=== PATIENT | female | born 1940 | race Asian ===

== ENCOUNTER 2017-03-27 05:54 | Day surgery (SDC) | payer OTHER ==
[~2017-03-27] VITALS: Ht 154.9 cm; Wt 53.5 kg
[~2017-03-27 05:54] MED LIST: LASIX40 MG PO; NABI650T PO; RENVELA800 MG PO; TENORMIN25 MG PO
[2017-03-27 06:20] LABS: HEMATOCRIT 34.1 % (36.0-46.0); MCH 31.6 PG (29.0-34.0); MCHC 32.6 G/DL (30.0-36.0); MCV 97.2 FL (83-99); MEAN PLAT.VOLUME 9.3 uM^3 (9.5-12.4); PLATELET COUNT 156 K/uL (156-360); RBC DIS.WIDTH-CV 12.5 % (11.8-14.6); RED BLOOD COUNT 3.51 M/uL (3.80-5.20); WHITE BLOOD COUNT 7.4 K/uL (4.1-10.2)
[2017-03-27 06:37] VITALS: BP 140/64
[2017-03-27 07:00] LABS: ANION GAP 11 MEQ/L (2-14); CHLORIDE 108 MEQ/L (99-109); GFR ESTIMATE (CALCULATED) 7 mL/min/; GLUCOSE 102 mg/dL (70-99); POTASSIUM 4.4 MEQ/L (3.7-5.4); SAMPLE HEMOLYSIS CHECK 0; SAMPLE ICTERIC CHECK 0; SAMPLE LIPEMIA CHECK 0; SODIUM 141 MEQ/L (136-147); UREA NITROGEN (BUN) 74 mg/dL (9-23)
[2017-03-27 09:40] VITALS: BP 131/67
[2017-03-27 10:42] VITALS: BP 125/60
[2017-03-27 11:20] VITALS: BP 136/60
== END 2017-03-27 11:35 | disposition home or self-care (01) ==
LOC: SDC 05:54
PROVIDERS: Surgery
PROC: 05WY07Z Revision of Autologous Tissue Substitute in Upper Vein, Open Approach (ICD-10-PCS; principal; 2017-03-27)
DX: T82.590A Other mechanical complication of surgically created arteriovenous fistula, initial encounter (principal); I12.0 Hypertensive chronic kidney disease with stage 5 chronic kidney disease or end stage renal disease; N18.6 End stage renal disease; Z88.2 Allergy status to sulfonamides
CPT/HCPCS: 80048; 85027; J0690; J1644; J2720; J3010